=== PATIENT | male | born 1970 | race Caucasian/White ===

== ENCOUNTER 2018-06-20 10:57 | Emergency (ER) | payer BC ==
[2018-06-20 11:16] VITALS: BP 124/82
--- NOTE | 2018-06-20 11:33 | UC ---
Ear Complaint HPI - HPI Summary HPI Summary: Shyam ear pressure and plugged sensation. In the past he has needed irrigation. Two flights recently to [place] where he used ear plugs. No drainage or tenderness ro fever or uri symptoms. - History of Current Complaint Chief Complaint: UCEar Stated Complaint: BILATERAL EAR COMPLAINT Time Seen by Provider: 06/20/18 11:16 Hx Obtained From: Patient Onset/Duration: Lasting Days Severity Initially: Mild Severity Currently: Mild Pain Intensity: 0 Aggravating Factors: Nothing Alleviating Factors: Nothing Associated Signs/Symptoms: Positive: Hearing Loss. Negative: Discharge, Swelling @, URI Symptoms - Allergies/Home Medications Allergies/Adverse Reactions: Allergies Allergy/AdvReac Type Severity Reaction Status Date / Time No Known Allergies Allergy Verified 06/20/18 11:14 Home Medications: Home Medications NK [No Home Medications Reported] 06/20/18 [History Confirmed 06/20/18] PMH/Surg Hx/FS Hx/Imm Hx Previously Healthy: No - prior cerumen. - Surgical History Surgical History: Yes Surgery Procedure, Year, and Place: HERNIA X2. TESTICULAR TORSION. APPENDECTOMY. WISDOM TEETH - Family History Known Family History: Positive: Other - No related fh of ear disease. - Social History Alcohol Use: Rare Substance Use Type: None Smoking Status (MU): Never Smoked Tobacco Review of Systems ENT: Other - ear pressure. All Other Systems Reviewed And Are Negative: Yes Physical Exam Triage Information Reviewed: Yes Appearance: Well-Appearing, No Pain Distress, Well-Nourished Vital Signs: Initial Vital Signs Temp 98.1 F 06/20/18 11:11 Pulse 74 06/20/18 11:11 Resp 16 06/20/18 11:11 BP 124/82 06/20/18 11:11 Pulse Ox 100 06/20/18 11:11 Vital Signs Reviewed: Yes Eyes: Positive: Conjunctiva Clear. Negative: Conjunctiva Inflamed ENT: Positive: Normal ENT inspection, Pharynx normal, Pharyngeal erythema, Uvula midline, Other - shyam cerumen impaction without canal swelling. No tragal tenderness or canal tenderness.. Negative: Nasal congestion, Nasal drainage, Tonsillar swelling, Tonsillar exudate, Trismus, Muffled voice, Hoarse voice, Sinus tenderness Neck: Positive: Supple, Nontender, No Lymphadenopathy Respiratory: Positive: Lungs clear, Normal breath sounds, No respiratory distress, No accessory muscle use. Negative: Respiratory distress, Decreased breath sounds, Accessory muscle use, Crackles, Rhonchi, Stridor Cardiovascular: Positive: No Murmur, Pulses Normal, Brisk Capillary Refill Abdomen Description: Negative: Distended Musculoskeletal: Positive: Strength Intact, ROM Intact, No Edema Neurological: Positive: Alert, Muscle Tone Normal. Negative: Fatigued Psychological: Positive: Age Appropriate Behavior Skin: Negative: rashes Ear Complaint Course/Dx - Differential Dx/Diagnosis Differential Diagnosis/HQI/PQRI: Mastoiditis, Otitis Externa, Otitis Media, Perforated TM Provider Diagnoses: cerumen impaction. Discharge - Sign-Out/Discharge Documenting (check all that apply): Patient Departure - Discharge Plan Condition: Good Disposition: HOME Patient Education Materials: Cerumen Impaction (ED) Referrals: Philip Reaves MD [Primary Care Provider] - - Billing Disposition and Condition Condition: GOOD Disposition: Home
== END 2018-06-20 11:47 | disposition home or self-care (01) ==
LOC: UCCORT 10:57
DX: H61.20 Impacted cerumen, unspecified ear (principal)
CPT/HCPCS: 99203; G0463

== ENCOUNTER 2019-12-29 16:00 | Emergency (ER) | payer BC ==
[2019-12-29 16:20] VITALS: BP 119/85
--- NOTE | 2019-12-29 16:36 | UC ---
Ear Complaint HPI - HPI Summary HPI Summary: 49yo male presenting with left earache x3 days. States pain is intermittent. Denies drainage from the ear. Denies hearing changes. Denies right ear symptoms. Denies recent URI or allergies. Denies fever and chills. Denies tinnitus. 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 - History of Current Complaint Chief Complaint: UCEar Stated Complaint: EAR COMPLAINT Hx Obtained From: Patient Pain Intensity: 2 Pain Scale Used: 0-10 Numeric - Allergies/Home Medications Allergies/Adverse Reactions: Allergies Allergy/AdvReac Type Severity Reaction Status Date / Time amoxicillin Allergy Itching Verified 12/29/19 16:21 Home Medications: Home Medications NK [No Home Medications Reported] 06/20/18 [History Confirmed 12/29/19] PMH/Surg Hx/FS Hx/Imm Hx Previously Healthy: Yes - Surgical History Surgical History: Yes Surgery Procedure, Year, and Place: HERNIA X2. TESTICULAR TORSION. APPENDECTOMY. WISDOM TEETH - Family History Known Family History: Positive: Other - No related fh of ear disease. - Social History Alcohol Use: Rare Substance Use Type: None Smoking Status (MU): Never Smoked Tobacco Review of Systems All Other Systems Reviewed And Are Negative: Yes Constitutional: Positive: Negative ENT: Positive: Ear Ache - left. Negative: Sinus Congestion Respiratory: Positive: Negative Cardiovascular: Positive: Negative Musculoskeletal: Positive: Negative Neurological/Mental Status: Positive: Negative Physical Exam - Summary Physical Exam Summary: Vital Signs Reviewed: Yes A+Ox3, no distress, well-appearing Eyes: Conjunctiva Clear ENT: Hearing grossly normal, right TM intact and clear. left TM with small effusion, no erythema, no bulging. no nasal congestion, moist, uvula midline, no exudate, no erythema Neck: Positive: Supple, no lymphadenopathy Respiratory: Positive: No respiratory distress, No accessory muscle use + CTA throughout no w/r Cardiovascular: RRR nl s1, s2 no m/r Musculoskeletal Exam: LOZANO x 4 without difficulty Neurological: Positive: Alert Psychological: Positive: age appropriate behavior Skin: Positive: no rash, no ecchymosis Vital Signs: Initial Vital Signs Temp 98.8 F 12/29/19 16:16 Pulse 51 12/29/19 16:16 Resp 14 12/29/19 16:16 BP 119/85 12/29/19 16:16 Pulse Ox 100 12/29/19 16:16 Ear Complaint Course/Dx - Course Course Of Treatment: Educated on serous otitis media and possible duration of symptoms for several weeks or months. Informed that symptoms should resolve on their own but that he may continue with otc decongestant. Instructed to follow up with pcp for persistent or worsening symptoms. Patient voiced understanding and agreed with treatment plan. - Differential Dx/Diagnosis Provider Diagnosis: Acute serous otitis media, left ear Discharge ED - Sign-Out/Discharge Documenting (check all that apply): Patient Departure All imaging exams completed and their final reports reviewed: No Studies - Discharge Plan Condition: Stable Disposition: HOME Patient Education Materials: Serous Otitis Media (ED) Referrals: Philip Reaves MD [Primary Care Provider] - If Needed Additional Instructions: As discussed, there is no sign of infection in the ear. You may continue with an over the counter decongestant and ibuprofen as directed Follow up with your primary care provider if symptoms worsen or do not resolve within a few weeks. - Billing Disposition and Condition Condition: STABLE Disposition: Home - Attestation Statements Provider Attestation: Per institutional requirements, I have reviewed the chart, however, I was not consulted specifically or made aware of this patient by the midlevel provider. I did not personally evaluate, interact with, or disposition this patient. EK
== END 2019-12-29 16:51 | disposition home or self-care (01) ==
LOC: UCCORT 16:00
DX: H65.02 Acute serous otitis media, left ear (principal); Z88.0 Allergy status to penicillin
CPT/HCPCS: 99211; G0463